=== PATIENT | male | born 1965 | race Asian ===

== ENCOUNTER 2016-08-21 10:04 | Emergency (ER) | payer OTHER ==
[2016-08-21 10:28] VITALS: BP 134/97; PULSE 86; RESP 16; TEMP 99.1; O2SAT 92
--- NOTE | 2016-08-21 11:35 | UCPHY ---
H & P Patient Type: Established HPI/ROS: CHIEF COMPLAINT: Abdominal lump History by patient HISTORY OF PRESENT ILLNESS: 51-year-old otherwise healthy man presents complaining of a swollen lump in his upper abdomen which he noticed for the 1st time last night when he tried sitting up from lying on the floor during stretches. He describes a bulging in his epigastrium which resolved when he either laid flat or stood up. It was not painful. He has never noticed this before. Some associated with any nausea, vomiting or diarrhea or change in stool habits. He has no prior history of abdominal surgeries. He is worried because he is moving to [place] next week. The bulge persists when he does abdominal crunches and resolves when he lays father stands up and again there is no associated pain. REVIEW OF SYSTEMS: As in HPI, and all other systems reviewed and are negative Smoking Status: Never smoked Physical Exam: General Appearance: Alert and no distress. Eyes: Pupils equal and round no injection. Respiratory: Chest is nontender, lungs are clear to auscultation. Cardiac: regular rate and rhythm. Gastrointestinal: Abdomen is soft and nontender, no masses, bowel sounds normal. Palpable ventral hernia in epigastrium when patient performs sit up, which is easily reducible and nontender and not apparent when the patient is laying flat Musculoskeletal: Neck is supple and nontender. Extremities have full range of motion and are nontender. Skin: No rashes or lesions. Constitutional: Initial Vital Signs Temperature (C) 37.3 C 08/21/16 10:23 Heart Rate 86 08/21/16 10:23 Respiratory Rate 16 08/21/16 10:23 Blood Pressure 134/97 H 08/21/16 10:23 O2 Sat (%) 92 08/21/16 10:23 O2 Delivery Mode Room Air Allergies/Adverse Reactions: No Known Allergies Allergy (Unverified 07/27/14 09:54) Home Medications: Medication Instructions Recorded NK [No Known Home Meds] 08/21/16 Medical Decision Making ED Course/Re-evaluation: 51-year-old man presents with evidence of the easily reducible ventral hernia. There is no evidence of incarceration or complication. Patient was given reassurance and we discussed return precautions including pain or becoming not reducible, and need for follow-up with surgery if he would like a corrected. Departure - Departure Disposition: Home, Routine, Self-Care Clinical Impression: Hernia of anterior abdominal wall Condition: Good Instructions: Ventral Hernia (ED) Additional Instructions: You were seen by Dr. Loraine Donato today. Return for any worsening or new concerns. Referrals: NONE *PRIMARY CARE P,. [Primary Care Provider] - As per Instructions - PQRS PQRS Measurement: NA
== END 2016-08-21 11:39 | disposition home or self-care (01) ==
LOC: CED 10:04
DX: K43.9 Ventral hernia without obstruction or gangrene (principal)
CPT/HCPCS: 99213-PO; G0463-PO